=== PATIENT | female | born 1990 | race Caucasian/White ===

== ENCOUNTER 2016-11-02 11:25 | Inpatient (IN) | payer MEDICAID ==
[2016-11-04 10:00] VITALS: BMI 36.8
[2016-11-04] MEDS: Lactated Ringer's 1,000 ML IV SCH ×2 (10:06→18:36)
[2016-11-04] MEDS ORDERED: Nalbuphine 20 mg/ml Inj (1 ml) IVP PRN (10:15)
--- NOTE | 2016-11-04 10:18 | OBADHP ---
Datetime: 11/04/2016 10:08 Admit Comment, IP Provider: at 39+weks here for induction for olgohyraminos in the office, no c txs, vb, lof,+fm. obhx 2 x , 2 x sab pmh denies med pnv all nkda psh denies soch denies ve ft/50/-3 a/p at 39+weeks here for induction for oligo admit to l_d npo/ivf labs cont sol and efm cytotec po pain manageme anticipate bsvd Pelvic Type - PN: Adequate Extremities - PN: Normal Abdomen - PN: Normal Back - PN: Normal Breast - PN: Normal Lungs - PN: Normal Heart - PN: Normal Thyroid - PN: Normal Neurologic - PN: Normal HEENT - PN: Normal General - PN: Normal FHR - Baseline A Provider: 130 Contraction Comments Provider: occ IP Hx Assessment: The History has been Reviewed and is Current Vital Signs Provider: Reviewed; Within Normal Limits IP Chief Complaint: Scheduled induction of labor NICHD Variability Prov Fetus A: Moderate 6-25bpm NICHD Accel Fetus A IP Provider: 15X15 FHR Category Provider Fetus A: Category I Dilatation, Provider: ft Effacement, Provider: 50 Station, Provider: -3 Genitourinary Exam: Normal DTRs - PN: Normal EGA AdmitDate IP: 39.3 IP Adm Impression: Term, intrauterine ; Intact Membranes IP Admit Plan: Admit to unit; Initiate labor induction protocol
[2016-11-04 10:36] LABS: BASO % 0.5 % (0.0-2.0); EOS # 0.1 K/uL (0.0-0.7); EOS % 0.7 % (0.0-4.0); HEMATOCRIT 35.2 % (34.0-47.0); LYMPH % 21.6 % (20.0-40.0); MEAN CELL VOLUME 82.6 fL (81.0-99.0); MEAN CORPUSCULAR HEMOGLOBIN 26.9 pg (27.0-31.0); MEAN CORPUSCULAR HGB CONC 32.5 g/dL (33.0-37.0); MEAN PLATELET VOLUME 9.3 fL (7.2-11.7); MONO # 0.7 K/uL (0.0-0.8); MONO % 7.1 % (0.0-10.0); RED CELL DISTRIBUTION WIDTH 16.2 % (11.5-14.5); WHITE BLOOD COUNT 9.3 K/uL (4.8-10.8)
[2016-11-04 10:45] LABS: CHLORIDE 100 mmol/L (98-107); POTASSIUM 3.4 mmol/L (3.6-5.2); SODIUM 134 mmol/L (132-148)
[2016-11-04 10:47] LABS: BILIRUBIN,TOTAL 0.3 mg/dL (0.2-1.3); CARBON DIOXIDE 22 mmol/L (22-30); GFR AFRICAN-AMERICAN > 60; TOTAL PROTEIN 7.1 g/dL (6.3-8.3)
[2016-11-04 10:48] LABS: ALKALINE PHOSPHATASE 159 U/L (38-126); ALT/SGPT 27 U/L (9-52); AST/SGOT 27 U/L (14-36); BLOOD UREA NITROGEN 5 mg/dL (7-17); CALCIUM 8.6 mg/dl (8.6-10.4); GLUCOSE,RANDOM 96 mg/dL (65-105)
[2016-11-04 11:04] LABS: URINE BILIRUBIN NEGATIVE (NEGATIVE); URINE BLOOD NEGATIVE (NEGATIVE); URINE COLOR YELLOW (YELLOW); URINE GLUCOSE (UA) NORMAL (Normal); URINE KETONE TRACE mg/dL (NEGATIVE)
[2016-11-04 11:05] LABS: RBC URINE 3 /hpf (0-3); URINE BACTERIA OCC (<OCC); URINE LEUKOCYTE ESTERASE 1+ Leu/uL (Negative); URINE PROTEIN NEGATIVE (NEGATIVE); WBC URINE 8 /hpf (0-5)
[2016-11-04] MEDS ORDERED: Oxytocin 30 UNIT 500 ML IV PRN (17:29)
--- NOTE | 2016-11-04 17:30 | OBPN ---
Datetime: 11/04/2016 17:26 IP Progress Impression: Normal progression of labor IP Procedures: Artificial ROM; Sterile Vag Exam Contraction Comments Provider: irrg FHR - Baseline A Provider: 130 IP Progress Note Comment: pt was exmine at bed side ve 2-3/70/-2 arom cler start pitocin anticipate NICHD Accel Fetus A IP Provider: 15X15 FHR Category Provider Fetus A: Category I NICHD Variability Prov Fetus A: Moderate 6-25bpm Dilatation, Provider: 3 Effacement, Provider: 70 Station, Provider: -2 Datetime: 11/04/2016 10:08 IP Informed Consent Obtain: Vaginal Delivery Vital Signs Provider: Reviewed; Within Normal Limits
[2016-11-04] MEDS ORDERED: Oxytocin 30 UNIT 500 ML IV ONE (18:14)
[2016-11-04] MEDS ORDERED: Nalbuphine 20 mg/ml Inj (1 ml) ONE (18:17)
[2016-11-04 20:08] VITALS: RESP 20
[2016-11-04] MEDS ORDERED: Bupivacaine 0.125%/FentaNYL 200 ML EPI ONE (20:14)
--- NOTE | 2016-11-04 21:18 | OBPN ---
Datetime: 11/04/2016 21:11 IP Progress Impression: Normal progression of labor; Reassuring heart rate IP Informed Consent Obtain: Vaginal Delivery; Risks, Benefits and Alternatives Discussed IP Procedures: Sterile Vag Exam IP Progress Plan: Continue present management; Augmentation; Anticipate Vaginal Delivery Membranes, Provider: Ruptured FHR - Baseline A Provider: 130 Gestation - Est Wks by US: 39.0 Weight - Estimated: 3400 Presentation-Admit: Vertex IP Progress Note Comment: Active Labor. Reassuring Status. Anticipate . NICHD Accel Fetus A IP Provider: 15X15 FHR Category Provider Fetus A: Category I NICHD Variability Prov Fetus A: Moderate 6-25bpm NICHD Decel Fetus A IP Provider: None
[2016-11-05] MEDS ORDERED: Oxycodone/Acetaminophen 5/325 mg Tab PO PRN (09:51)
[2016-11-05] MEDS ORDERED: Bisacodyl 5mg EC Tab PO ONE (10:00)
[2016-11-05 14:36] LABS: BASO # 0.1 K/uL (0.0-0.2); BASO % 0.5 % (0.0-2.0); EOS # 0.1 K/uL (0.0-0.7); EOS % 1.1 % (0.0-4.0); HEMATOCRIT 32.3 % (34.0-47.0); LYMPH # 1.8 K/uL (1.0-4.3); LYMPH % 18.1 % (20.0-40.0); MEAN CELL VOLUME 83.1 fL (81.0-99.0); MEAN CORPUSCULAR HEMOGLOBIN 27.9 pg (27.0-31.0); MEAN CORPUSCULAR HGB CONC 33.6 g/dL (33.0-37.0); MEAN PLATELET VOLUME 9.3 fL (7.2-11.7); MONO # 0.7 K/uL (0.0-0.8); MONO % 7.3 % (0.0-10.0); NRBC % 0.1 % (0.0-2.0); RED CELL DISTRIBUTION WIDTH 16.5 % (11.5-14.5)
[2016-11-05 18:48] VITALS: O2SAT 98
[2016-11-06 00:19] VITALS: BP 120/80; PULSE 88; TEMP 97.1
--- NOTE | 2016-11-06 10:36 | OBPPN ---
Datetime: 11/05/2016 08:30 PP Pain Prov: Within normal limits PP Nausea Prov: Denies PP Flatus Prov: Yes PP BM Prov: No PP Heart Prov: Normal PP Lungs Prov: Normal PP Abdomen/Uterus Prov: Normal PP Lochia Prov: Normal PP Vulva/Perineum Prov: Normal PP CVA Tenderness Prov: Normal PP Extremities Prov: Normal PP C/S Incision Prov: Not Applicable PP Progress Prov: Normal PP Impression Prov: Normal progression PP Plan Prov: Continue present management PP Progress Note Prov: S-patient denies any compalnts.denies nausea, vomiting, headache, chest pain, shortness of breath, numbness or tingling in hands and feet, vision changes, epigastric pain O-VSS Afebrile Fundus firm and below umbilicus extremities no calf tendernss A/P Patient s/p vaginal delivery ppd 1 doing well -follow up am cbc -continue routine care Vital Signs Provider PP: Reviewed; Within Normal Limits
--- NOTE | 2016-11-06 10:38 | OBDCSUM ---
Datetime: 11/06/2016 10:29 Discharged to, Provider: Home Follow up at, Provider: Dr. Telles Disch Instr Activity: Normal activity Disch Instr Diet: Regular Discharge Instructions, Provider: Routine instructions given Discharge Diagnosis, Provider: Term Delivered Discharge Time: 11/06/2016 12:30 Follow up in weeks, Provider: November Disch Referrals: None Contraception discussed, Prov: Yes Disch Activity Restrictions: No exercising; No lifting; No driving; Minimize walking; Minimize stair -climbing; No sexual activity; Nothing in vagina - [place], tampons, douche Discharge Diagnosis Prov Other: Contraception after Delivery: Tubal Ligation
--- NOTE | 2016-11-14 11:09 | OBPPN ---
Datetime: 11/06/2016 10:05 PP Pain Prov: Within normal limits PP Nausea Prov: Denies PP Flatus Prov: Yes PP BM Prov: Yes PP Breasts Prov: Normal PP Heart Prov: Normal PP Lungs Prov: Normal PP Abdomen/Uterus Prov: Normal PP Lochia Prov: Normal PP Vulva/Perineum Prov: Normal PP CVA Tenderness Prov: Normal PP Extremities Prov: Normal PP C/S Incision Prov: Not Applicable PP Progress Prov: Normal PP Impression Prov: Normal progression PP Plan Prov: Discharge PP Progress Note Prov: STABLE. fOLLOW UP 6 WEEKS. Vital Signs Provider PP: Reviewed; Within Normal Limits Vital Signs Provider Details PP: hGB 10
--- NOTE | 2016-11-17 14:24 | OBDS ---
DELIVERY PERSONNEL Delivery Doctor: Juliocesar Telles MD Scrub Nurse: Agustina Larson [employer] Superintendent: Emerita Gauthier RN Anesthesiologist: ad MATERNAL INFORMATION Delivery Anesthesia: Epidural Medications in Delivery: pitocin 20 Estimated Blood Loss (ml): 100 Placenta Cultured: No Maternal Complications: None Provider Comments: to a viable girl ,'s 9/9 LABOR SUMMARY EDC: 11/08/2016 00:00 No. Babies in Womb: 1 Attempted: No Labor Anesthesia: None LABOR INFORMATION Complete Dilatation: 11/04/2016 22:10 Cervical Ripening Agents: Cytotec @ (Annotations: 50 Mcg Po) Oxytocin: Induction Group B Beta Strep: Negative Steroids Given: None Reason Steroids Not Administered: Not Applicable MEMBRANES Membranes Rupture Method: Artificial Rupture of Membranes: 11/04/2016 17:33 Length of Rupture (hrs): 4.68 Amniotic Fluid Color: Clear Amniotic Fluid Amount: Small Amniotic Fluid Odor: None STAGES OF LABOR Stage 2 hrs: 0 Stage 2 min: 4 Stage 3 hrs: 0 Stage 3 min: 6 VAGINAL DELIVERY Episiotomy: None Laceration Extension: N/A Laceration Type: None Initial Vag Sponge Count: 10 Final Vag Sponge Count: 10 Sponge Count Correct: Yes; Vaginal Sweep Performed BABY A INFORMATION Infant Delivery Date/Time: 11/04/2016 22:14 Method of Delivery: Vaginal Born in Route : No : N/A Forceps: N/A Vacuum Extraction: N/A Shoulder Dystocia : No SHOULDER DYSTOCIA BABY A Infant Delivery Date/Time: 11/04/2016 22:14 PRESENTATION/POSITION BABY A Presentation: Cephalic Cephalic Presentation: Vertex Vertex Position: Right Occipital Anterior Breech Presentation: N/A PLACENTA INFORMATION BABY A Placenta Delivery Time : 11/04/2016 22:20 Placenta Method of Delivery: Spontaneous Placenta Status: Delivered SCORES BABY A Heart Rate 1 min: >100 bpm Resp Effort 1 min: Good Cry Reflex Irritability 1 min: Cough or Sneeze or Pulls Away Muscle Tone 1 min: Active Motion Color 1 min: Body [place], Extremities Blue Resuscitation Effort 1 min: Tactile Stimulation SCORE 1 MIN: 9 Heart Rate 5 min: >100 bpm Resp Effort 5 min: Good Cry Reflex Irritability 5 min: Cough or Sneeze or Pulls Away Muscle Tone 5 min: Active Motion Color 5 min: Body [place], Extremities Blue SCORE 5 MIN: 9 INFORMATION BABY A Gestational Age at Delivery: 39.0 Gestational Status: Term Infant Outcome : Liveborn Condition : Stable Infant Sex: Female IDENTIFICATION/MEDS BABY A ID Band Number: [id number] ID Band Location: Left Leg; Left Arm Sensor Applied: Yes Sensor Number: [id number] Sensor Location : Cord Clamp WEIGHT/LENGTH BABY A Birthweight (gms): 3065 Weight (lb): 6 Infant Weight (oz): 12 Infant Length Inches: 19.00 Length cms: 48.3 CORD INFORMATION BABY A No. Cord Vessels: 3 Nuchal Cord : N/A Cord Blood Taken: Yes Suction: Mouth; Nose ASSESSMENT BABY A Complications: None Physical Findings at Delivery: Within Normal Limits Infant Respirations: Appears Normal Inspector Eyeglass Frames/ALS Called : No Care By: wilver Transferred To: Remains with Mother
== END 2016-11-06 12:30 | disposition home or self-care (01) | DRG 373 ==
LOC: C.4D 11-04 09:24 → C.4M 11-04 23:40
PROVIDERS: ADMIT Obstetrics & Gynecology; ATTEND Obstetrics & Gynecology
PROC: 10E0XZZ Delivery of Products of Conception, External Approach (ICD-10-PCS; principal; 2016-11-04)
DX: O41.03X0 Oligohydramnios, third trimester, not applicable or unspecified (principal); Z68.36 Body mass index [BMI] 36.0-36.9, adult; Z37.0 Single live birth; Z3A.39 39 weeks gestation of pregnancy

== ENCOUNTER 2016-12-17 10:00 | Day surgery (SDC) | payer MEDICAID ==
[2016-12-14 09:56] VITALS: BMI 33.6
[~2016-12-17 10:00] MED LIST: HYDROmorphone 0.5 mg/0.5 ml ISec ONE; Midazolam 2 MG/2 ML VIAL ONE; Neostigmine Methylsulfate 3mg/3ml Syringe IV ONE; Phenylephrine 10 mg/ml Inj ONE; Propofol 10 mg/ml Inj (20 ML) ONE; Rocuronium 10 mg/ml (10 ml) ONE; Succinylcholine Chloride 20 mg/ml Syr (5 ml) IV ONE; cefOXitin IV 1 gm in Dextrose 1 GM/50 ML BAG IVPB ONE
--- NOTE | 2016-12-17 15:05 | OP ---
PROCEDURE DATE: 12/17/2016 PREOPERATIVE DIAGNOSES: Multiparity and sterilization. POSTOPERATIVE DIAGNOSES: Multiparity and sterilization. PROCEDURE: Laparoscopic bilateral tubal ligation using the LigaSure. SURGEON: Dr. Telles. KOSHER INSPECTOR: None. ANESTHESIA: General endotracheal tube given by Dr. Loo FINDINGS: Normal ovaries. Normal fallopian tubes. Normal uterus. DESCRIPTION OF PROCEDURE: Under adequate general anesthesia, the patient was placed in the lithotomy position. The abdomen, perineum and vagina were prepped and draped in the usual sterile fashion. A Carver catheter was placed in the bladder for continuous bladder drainage. The cervix was then exposed with a weighted speculum and an anterior speculum. Anterior lip of the cervix was grasped with a single tooth tenaculum. The uterus was sounded to 9 cm. A HUMI manipulator was inserted into the uterus. Attention was then turned to the abdomen. A 5 mm incision was made in the umbilicus and a Veress needle inserted into the abdomen and a pneumoperitoneum was created. A 5 mm trocar and cannula were inserted into the abdomen. A 5 mm laparoscope was inserted through the cannula.after the trocar was removed. The pelvis was inspected and the findings above were noted. Another 5 mm incision was made just above the symphysis pubis. A 5 mm trocar and cannula were inserted into the abdomen under laparoscopic guidance. Using the LigaSure, the right fallopian tube was identified and followed to the fimbriated end. The midsegment was elevated with the LigaSure and coagulated and transected. The same procedure was repeated on the left fallopian tube. The pneumoperitoneum was then evacuated. The skin incisions were approximated with 3-0 Monocryl suture. The patient was extubated in the operating room and transferred to the recovery room in good condition. Jonathan Telles MD cc: [id number] TT: 12/17/2016 12:06:48 tn MTDMatias
== END 2016-12-17 13:00 | disposition home or self-care (01) ==
LOC: C.OPSURG 10:00
PROVIDERS: ATTEND Obstetrics & Gynecology
DX: Z30.2 Encounter for sterilization (principal)
CPT/HCPCS: 58670; J0694; J1100; J1170; J1885; J2001; J2250; J2370; J2405; J2704; J2710; J3010